=== PATIENT | female | born 1975 | race African-American/Black ===

== ENCOUNTER 2021-12-05 08:42 | Emergency (ER) | payer BC, OTHER ==
[2021-12-05 08:54] VITALS: BP 136/88; PULSE 95; TEMP 97; BMI 34.2
== END 2021-12-05 09:20 | disposition home or self-care (01) ==
LOC: JER 08:42
DX: R05.9 Cough, unspecified (principal); H61.23 Impacted cerumen, bilateral
CPT/HCPCS: 99283-25

== ENCOUNTER 2022-02-06 12:52 | Emergency (ER) | payer BC, OTHER ==
[2022-02-06 13:19] VITALS: BP 113/79; PULSE 83; TEMP 98.4; BMI 33.1
[2022-02-06] MEDS ORDERED: KETOROLAC TROMETHAMINE 30 MG/1 ML VIAL ONE (13:43)
[2022-02-06] MEDS ORDERED: KETOROLAC TROMETHAMINE 30 MG/1 ML VIAL IM ONE (13:46)
== END 2022-02-06 13:51 | disposition home or self-care (01) ==
LOC: JERFT 12:52
PROC: 3E0233Z Introduction of Anti-inflammatory into Muscle, Percutaneous Approach (ICD-10-PCS; principal; 2022-02-06)
DX: M54.50 Low back pain, unspecified (principal)
CPT/HCPCS: 99284-25

== ENCOUNTER 2022-03-15 09:47 | Emergency (ER) | payer BC, OTHER ==
[2022-03-15 10:08] VITALS: BP 117/77; PULSE 90; TEMP 97.9; BMI 33.1
[2022-03-15] MEDS ORDERED: KETOROLAC TROMETHAMINE 30 MG/1 ML VIAL IM ONE (11:01)
[2022-03-15] MEDS ORDERED: KETOROLAC TROMETHAMINE 30 MG/1 ML VIAL ONE (11:30)
== END 2022-03-15 11:47 | disposition home or self-care (01) ==
LOC: JER 09:47
PROC: 3E0234Z Introduction of Serum, Toxoid and Vaccine into Muscle, Percutaneous Approach (ICD-10-PCS; principal; 2022-03-15)
DX: S63.501A Unspecified sprain of right wrist, initial encounter (principal); X50.0XXA Overexertion from strenuous movement or load, initial encounter
CPT/HCPCS: 73090-TC-RT-FY; 73110-TC-RT-FY; 99284-25